=== PATIENT | female | born 1970 | race Caucasian/White ===

== ENCOUNTER 2017-01-14 19:26 | Emergency (ER) | payer BC, OTHER ==
[~2017-01-14] VITALS: Ht 157.5 cm; Wt 117.1 kg
[~2017-01-14 19:26] MED LIST: AMPH30TA2 PO; CHOL100010 PO; DULO-24 PO; LEVO75TA PO; LISI-725 PO; SERT25TA PO
[2017-01-14 19:27] VITALS: TEMP 36.3; Ht 157.5 cm; Wt 117.1 kg
[2017-01-14] MEDS ORDERED: SODIUM CHLORIDE 0.9% 1000ML 1,000 ML IV STA (19:36)
[2017-01-14] MEDS ORDERED: ADENOSINE IV SOLN 3 MG/ML 2 ML VIAL ONE (19:39)
[2017-01-14 20:07] LABS: HEMATOCRIT 37.7 % (37-47); MEAN CELL VOLUME 85.1 fL (80-100); MEAN CORPUSCULAR HEMOGLOBIN 28.9 pg (25-34); MEAN PLATELET VOLUME 12.6 fL (7.4-10.4); PLATELET COUNT 323 K/uL (130-400); RED BLOOD COUNT 4.43 M/uL (4.2-5.4); WHITE BLOOD COUNT 16.83 K/uL (4.8-10.8)
[2017-01-14 20:31] LABS: ALT/SGPT 26 U/L (12-78); AST/SGOT 19 U/L (15-37); BLOOD UREA NITROGEN 12 mg/dl (7-18); BUN/CREATININE RATIO 12.8 (10-20); CALCIUM 8.5 mg/dl (8.5-10.1); CARBON DIOXIDE 24 mmol/L (21-32); CHLORIDE 107 mmol/L (98-107); CREATININE 0.96 mg/dl (0.60-1.20); GLUCOSE 110 mg/dl (70-99); MAGNESIUM 1.9 mg/dl (1.8-2.4); SODIUM 140 mmol/L (136-145)
[2017-01-14 20:36] LABS: ALKALINE PHOSPHATASE 92 U/L (45-117)
[2017-01-14 20:57] LABS: PREG INTERNAL NEGATIVE QC NEG CLEAR BACKGROUND; PREG INTERNAL POSITIVE QC POS CONTROL LINE
[2017-01-14 21:06] LABS: BASO % 0.3 %; BASO ABS # 0.05 K/uL (0-0.2); COMPLETE YES; EOS % 1.5 %; IG% 0.3 %; LYMPH % 39.4 %; LYMPH ABS # 6.63 K/uL (1.2-3.4); MONO % 7.1 %; NEUT % 51.4 %
--- NOTE | 2017-01-14 21:06 | EMERGENCY ROOM VISIT NOTE ---
History Report prepared by Austyn: Roxana Sanon Under the Supervision of: Dr. Chris Hwang D.O. First contact with patient: 19:31 Chief Complaint: TACHYCARDIA Stated Complaint: TACHYCARDIA History of Present Illness The patient is a 46 year old female who presents to the Emergency Room with complaints of constant tachycardia for the past 1.5 hours. She spoke with David Katz PA-C with cardiology. He recommended an extra dose 100mg of Metoprolol. She took this around 181, but her tachycardia has persisted. The patient has had this 3 times in the past. She denies any chest pain. She rates her current discomfort as a 5/10 in severity. The patient states that she feels her pulse pounding in her ears. 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 Her LNMP was 2 weeks ago. 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 A total of 10 systems reviewed and were otherwise negative. Past Medical & Surgical Medical Problems: (1) Hypokalemia (2) Other specified cardiac dysrhythmias (3) Polycystic ovaries Family History FH: heart disease Social History Smoking Status: Never Smoker Smokeless Tobacco Use: No Alcohol Use: none Marital Status: Housing Status: lives with family Occupation Status: employed Current/Historical Medications Scheduled Bupropion (Wellbutrin-Xl), 300 MG PO DAILY Cholecalciferol (Vitamin D), 1,000 UNITS PO DAILY Fluoxetine (Prozac), 10 MG PO DAILY Levothyroxine Sodium (Synthroid), 75 MCG PO DAILY Metoprolol Tartrate (Lopressor), 75 MG PO BID Spironolactone (Aldactone), 1 TAB PO DAILY Allergies Coded Allergies: No Known Allergies (Verified , 07/02/15) Uncoded Allergies: NKA (Allergy, Unknown, 01/08/15) No Known Allergies Physical Exam Vital Signs Date Time Temp Pulse Resp B/P (MAP) Pulse Ox O2 Delivery O2 Flow Rate FiO2 01/14/17 21:19 81 20 127/82 98 Room Air 01/14/17 20:41 77 18 115/76 98 Room Air 01/14/17 19:51 72 18 134/81 98 Room Air 01/14/17 19:47 98 Room Air 01/14/17 19:41 100 01/14/17 19:34 168 01/14/17 19:27 36.3 171 18 113/81 100 Room Air Physical Exam GENERAL: Patient is awake, alert, very anxious appearing. EYES: The conjunctivae are clear. The pupils are round and reactive. EARS, NOSE, MOUTH AND THROAT: The nose is without any evidence of any deformity. Mucous membranes are moist tongue is midline NECK: The neck is nontender and supple. RESPIRATORY: Normal respiratory effort is noted there is no evidence of wheezing rhonchi or rales CARDIOVASCULAR: Tachycardic rate and regular rhythm noted there no murmurs rubs or gallops normal S1 normal S2 GASTROINTESTINAL: The abdomen is soft. Bowel sounds are present in all quadrants. Abdomen is nontender MUSCULOSKELETAL/EXTREMITIES: There is no evidence of gross deformity full range of motion is noted in the hips and shoulders SKIN: There is no obvious evidence of any rash. There are no petechiae, pallor or cyanosis noted. NEUROLOGIC: Patient is awake alert and oriented x3 Medical Decision & Procedures ER Provider Diagnostic Interpretation: A repeat ECG reveals a NSR 87, no ectopy, no ischemia, resolution of previously noted SVT. Laboratory Results 01/14/17 19:40 Red Blood Count 4.43, Mean Corpuscular Volume 85.1, Mean Corpuscular Hemoglobin 28.9, Mean Corpuscular Hemoglobin Concent 34.0, Mean Platelet Volume 12.6, Neutrophils (%) (Auto) 51.4, Lymphocytes (%) (Auto) 39.4, Monocytes (%) (Auto) 7.1, Eosinophils (%) (Auto) 1.5, Basophils (%) (Auto) 0.3, Neutrophils # (Auto) 8.65, Lymphocytes # (Auto) 6.63, Monocytes # (Auto) 1.19, Eosinophils # (Auto) 0.26, Basophils # (Auto) 0.05 01/14/17 19:40 Test 01/14/17 19:40 White Blood Count 16.83 K/uL (4.8-10.8) Red Blood Count 4.43 M/uL (4.2-5.4) Hemoglobin 12.8 g/dL (12.0-16.0) Hematocrit 37.7 % (37-47) Mean Corpuscular Volume 85.1 fL (80-100) Mean Corpuscular Hemoglobin 28.9 pg (25-34) Mean Corpuscular Hemoglobin Concent 34.0 g/dl (32-36) Platelet Count 323 K/uL (130-400) Mean Platelet Volume 12.6 fL (7.4-10.4) Neutrophils (%) (Auto) 51.4 % Lymphocytes (%) (Auto) 39.4 % Monocytes (%) (Auto) 7.1 % Eosinophils (%) (Auto) 1.5 % Basophils (%) (Auto) 0.3 % Neutrophils # (Auto) 8.65 K/uL (1.4-6.5) Lymphocytes # (Auto) 6.63 K/uL (1.2-3.4) Monocytes # (Auto) 1.19 K/uL (0.11-0.59) Eosinophils # (Auto) 0.26 K/uL (0-0.5) Basophils # (Auto) 0.05 K/uL (0-0.2) RDW Standard Deviation 42.0 fL (36.4-46.3) RDW Coefficient of Variation 13.5 % (11.5-14.5) Immature Granulocyte % (Auto) 0.3 % Immature Granulocyte # (Auto) 0.05 K/uL (0.00-0.02) Anion Gap 9.0 mmol/L (3-11) Est Creatinine Clear Calc Drug Dose 88.0 ml/min Estimated GFR () 81.6 Estimated GFR (Non- 70.4 BUN/Creatinine Ratio 12.8 (10-20) Calcium Level 8.5 mg/dl (8.5-10.1) Magnesium Level 1.9 mg/dl (1.8-2.4) Total Bilirubin 0.2 mg/dl (0.2-1) Direct Bilirubin < 0.1 mg/dl (0-0.2) Aspartate Amino Transf (AST/SGOT) 19 U/L (15-37) Alanine Aminotransferase (ALT/SGPT) 26 U/L (12-78) Alkaline Phosphatase 92 U/L (45-117) Troponin I < 0.015 ng/ml (0-0.045) Total Protein 7.5 gm/dl (6.4-8.2) Albumin 3.4 gm/dl (3.4-5.0) Lipase 249 U/L (73-393) Human Chorionic Gonadotropin, Qual NEG (NEG) Laboratory results per my review. Medications Administered Medications (Trade) Dose Ordered Sig/Garcia Route Start Time Stop Time Status Last Admin Dose Admin Sodium Chloride 1,000 ml @ 999 mls/hr Q1H1M STAT IV 01/14/17 19:36 01/14/17 20:36 DC 01/14/17 19:42 999 MLS/HR Adenosine (Adenosine IV) 12 mg STK-MED ONCE .ROUTE 01/14/17 19:39 01/14/17 19:40 DC 01/14/17 19:51 12 MG ECG Indication: tachycardia Rate (beats per minute): 165 Rhythm: SVT Findings: no acute ischemic change, other (No PVCs) ED Course 1930: The patient was evaluated in room A2. A complete history and physical examination were performed. 1935: NSS 1000 ml @ 999 mls/hr IV 1938: Adenosine 12 mg IV 2105: I reassessed the patient at this time. She is feeling better and resting comfortably. I discussed the results and treatment plan with the patient. I answered all pertaining questions that she had. She expressed understanding and verbalized agreement. The patient will be discharged home. Medical Decision Differential diagnosis: Etiologies such as premature contractions, electrolyte abnormality, cardiac dysrhythmia, thyroid dysfunction, pulmonary embolism, infection, gastrointestinal, as well as others were entertained. Medication Reconciliation: I attest that I have personally reviewed the patient' s current medications list. Blood pressure screening: Patient was found to have normal blood pressure on screening and does not require follow-up. The patient is a 46-year-old female who has a history of SVT who presented to the emergency department for an evaluation of palpitations. The patient was in SVT in the emergency department. Multiple attempts at Valsalva maneuver did not resolve the SVT. She was treated with Adenosine in the emergency department. She was treated with IV fluids. On subsequent reevaluation she was feeling much better. I discussed patient's laboratory and radiographic studies with her. 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 She was also encouraged to return to the emergency department immediately if symptoms change worsen or the need arises. Impression Primary Impression: SVT (supraventricular tachycardia) Critical Care I have personally spent greater than 35 minutes of critical care time in the direct management of this patient. This includes bedside care, interpretation of diagnostic studies, and testing, discussion with consultants, patient, and family members, and other required patient management activities. This 35 minutes is in excess of all separately billable procedures. Scribe Attestation The scribe's documentation has been prepared under my direction and personally reviewed by me in its entirety. I confirm that the note above accurately reflects all work, treatment, procedures, and medical decision making performed by me. Departure Information Dispostion Home / Self-Care Referrals Rahul Hernandez M.D. (PCP) Forms HOME CARE DOCUMENTATION FORM, IMPORTANT VISIT INFORMATION, WORK / SCHOOL INSTRUCTIONS Patient Instructions My [facility] Additional Instructions Call your stamping die maker bench in the morning to schedule a follow-up appointment. Rest and avoid any strenuous activity. Return to the emergency department immediately if symptoms change worsen or the need arises.
[2017-01-14] MEDS ORDERED: BUPRTAB51 PO (21:07)
[2017-01-14] MEDS ORDERED: METO-551 PO (21:07)
[2017-01-14] MEDS ORDERED: FLUO10CA48 PO (21:07)
[2017-01-14] MEDS ORDERED: SPIR25TA PO (21:07)
[2017-01-14] MEDS ORDERED: CHOL100010 PO (21:09)
[2017-01-14 21:19] VITALS: BP 127/82; PULSE 81; O2SAT 98
[2017-03-20] MEDS ORDERED: CRDCD/180 PO (14:18)
[2017-07-12] MEDS ORDERED: SPIR50TA2 PO (08:14)
[2017-07-12] MEDS ORDERED: DILT120C68 PO (08:14)
[2017-07-12] MEDS ORDERED: GLC500 PO (08:14)
[2017-07-12] MEDS ORDERED: FLUO20CA35 PO (08:14)
== END 2017-01-14 21:30 | disposition home or self-care (01) ==
LOC: C.EDB 19:27 → C.EDA 21:30
DX: I47.1 Supraventricular tachycardia (principal); E28.2 Polycystic ovarian syndrome

== ENCOUNTER 2017-03-23 11:34 | Day surgery (SDC) | payer BC ==
--- NOTE | 2017-03-20 11:29 | HISTORY & PHYSICAL EXAMINATION ---
DATE OF ADMISSION: 03/23/2017 CHIEF COMPLAINT: Heavy irregular vaginal bleeding and desire for permanent sterilization. HISTORY OF PRESENT ILLNESS: The patient is a 47-year-old 2, para 2. General health is complicated by irregular heartbeat, hypertension and anxiety. She is on metoprolol, Cardizem, Prozac, Wellbutrin and spironolactone. She states she has had heavy bleeding every 2 weeks, lasting for about 7 days, at times heavy with clotting for the past 1 year. She has a ParaGard IUD in place that was inserted into 2011. An ultrasound done on 03/13/2017 revealed fundal fibroid 3.4 x 3.5 x 3.5 cm in diameter and the IUD in good position. The patient also requests permanent sterilization and has been informed of the procedure of tubal ligation including the fact that this procedure is intended to result in permanent and irreversible sterility and that occasionally these procedures will fail and the patient gets despite having had her tubes tied. She has also been informed that there is a possibility that we cannot get the trocar in laparoscopically. The patient presently being scheduled for an outpatient D&C, tubal ligation. PAST MEDICAL HISTORY: She has no known drug allergies. Medical history being treated for anxiety, high blood pressure and irregular heartbeat. She has 2 children in good health. PAST SURGICAL HISTORY: She has had a gallbladder removed. She has had her appendix, has had 2 laparoscopies which showed endometriosis. SOCIAL HISTORY: No smoking. No excessive alcohol intake. Works for [employer]. FAMILY HISTORY: Mom is 83, alive and well. Father in a car accident at age 45. No brothers or sisters. REVIEW OF SYSTEMS: HEAD: No symptoms of frequent or severe headaches. EYES: No symptoms of blurred vision, double vision. EARS: No symptoms of frequent ear infections, difficulty hearing. NOSE: No symptoms of frequent nosebleeds, difficulty breathing through her nose. THROAT: No symptoms of frequent or severe sore throats, difficulty swallowing. RESPIRATORY SYSTEM: No history of asthma, chest pain, shortness of breath. PHYSICAL EXAMINATION: GENERAL: Well-developed, well-nourished 47-year-old white female, alert, oriented x3 and cooperative in no acute distress, appears stated age. EYES: Conjunctivae are pink. Sclerae white. No evidence of jaundice. EARS: Had normal light reflex bilaterally. NOSE: Had normal mucosa. Septum is midline. There were no polyps. THROAT: No erythema or evidence of infection. Teeth are in good state of repair. HEAD: Was normocephalic, normal distribution of hair. NECK: Supple. Trachea midline. Thyroid is not enlarged. There is no adenopathy appreciated. Both carotids are of good intensity. CHEST: Clear to auscultation and percussion. No wheezes, rales or rhonchi appreciated. ABDOMEN: Soft and nontender. Scar right lower quadrant. PELVIC EXAMINATION: Normal appearing cervix, string visible from the cervical os. Uterus was about 9-10 weeks' gestational size, anteverted. There are no adnexal masses appreciated. MUSCULOSKELETAL EXAMINATION: Revealed no calf tenderness. IMPRESSIONS OF THIS CASE: Status post cholecystectomy, status post appendectomy, status post 2 laparoscopies showing endometriosis, also anxiety, high blood pressure, an irregular heartbeat, desire for permanent sterilization, dysfunctional uterine bleeding and uterine fibroids.
[2017-03-20 14:18] VITALS: Ht 157.5 cm; Wt 118.0 kg
[2017-03-20 18:02] LABS: HEMATOCRIT 37.4 % (37-47); MEAN CELL VOLUME 87.4 fL (80-100); MEAN CORPUSCULAR HEMOGLOBIN 28.7 pg (25-34); MEAN CORPUSCULAR HGB CONC 32.9 g/dl (32-36); MEAN PLATELET VOLUME 12.4 fL (7.4-10.4); PLATELET COUNT 313 K/uL (130-400); RED BLOOD COUNT 4.28 M/uL (4.2-5.4); WHITE BLOOD COUNT 12.59 K/uL (4.8-10.8)
[2017-03-20 18:46] LABS: PREG INTERNAL NEGATIVE QC NEG CLEAR BACKGROUND; PREG INTERNAL POSITIVE QC POS CONTROL LINE
[2017-03-20 18:54] LABS: BASO % 0.5 %; BASO ABS # 0.06 K/uL (0-0.2); COMPLETE YES; EOS % 1.1 %; IG% 0.3 %; LYMPH % 40.1 %; LYMPH ABS # 5.05 K/uL (1.2-3.4); MONO % 7.3 %; NEUT % 50.7 %
[~2017-03-23] VITALS: Ht 157.5 cm; Wt 118.0 kg
[~2017-03-23 11:34] MED LIST changes: -AMPH30TA2 PO; +BUPRTAB51 PO; +CRDCD/180 PO; -DULO-24 PO; +FLUO10CA48 PO; +LACTATED RINGER'S 1000ML 1,000 ML IV SCH; -LISI-725 PO; +METO-551 PO; -SERT25TA PO; +SPIR25TA PO
[2017-03-23] MEDS ORDERED: HYDROmorphone INJ 1 MG/ML SYR IV PRN (11:45)
[2017-03-23] MEDS ORDERED: ONDANSETRON INJ 2 MG/ML 2 ML VIAL IV PRN ×2 (11:45→14:30)
[2017-03-23] MEDS ORDERED: ATROPINE SULFATE 0.1 MG/ML 5ML SYR IV PRN (11:45)
[2017-03-23] MEDS ORDERED: FENTANYL CITRATE INJ 50 MCG/1 ML 2 ML VIAL IV PRN (11:45)
[2017-03-23] MEDS ORDERED: ACETAMINOPHEN 1000 MG/100 ML IV IV ONE (11:45)
[2017-03-23] MEDS ORDERED: PROMETHAZINE HCL INJ 12.5 MG in SODIUM CHLORIDE 0.9% 50ML 50 ML IV PRN (11:45)
[2017-03-23] MEDS ORDERED: EpHEDrine SULFATE INJ 50 MG/ML AMP IV PRN (11:45)
[2017-03-23] MEDS ORDERED: MIDAZOLAM HCL 1 MG/ML 2ML VIAL ONE (11:46)
[2017-03-23] MEDS ORDERED: FENTANYL CITRATE INJ 50 MCG/1 ML 2 ML VIAL ONE ×2 (11:47→13:18)
--- NOTE | 2017-03-23 12:03 | History & Physical Bridge Note ---
H&P Re-Evaluation Bridge Note: I have examined the patient, reviewed the History & Physical and in the interval since the performance of the History & Physical I have noted the following changes of clinical significance: No changes noted
[2017-03-23 12:11] VITALS: BP 132/71; PULSE 63; TEMP 37; O2SAT 96
[2017-03-23] MEDS ORDERED: SCOPOLAMINE 1.5 MG TDSY TD ONE (12:43)
[2017-03-23] MEDS ORDERED: LACTATED RINGER'S 1000ML 1,000 ML IV SCH (12:46)
[2017-03-23] MEDS ORDERED: BUPIVACAINE/EPINEPHRINE 0.5% MPF 1:200,000 10 ML VIAL ONE (12:50)
[2017-03-23] MEDS ORDERED: SCOPOLAMINE 1.5 MG TDSY TD SCH (13:00)
[2017-03-23 13:02] LABS: PREG INTERNAL NEGATIVE QC NEG CLEAR BACKGROUND; PREG INTERNAL POSITIVE QC POS CONTROL LINE
[2017-03-23] MEDS ORDERED: ONDANSETRON INJ 2 MG/ML 2 ML VIAL ONE (13:35)
[2017-03-23] MEDS ORDERED: METOCLOPRAMIDE HCL INJ 5 MG/ML 2 ML VIAL ONE (13:35)
[2017-03-23] MEDS ORDERED: LIDOCAINE HCL 2% 2 ML VIAL (20MG/ML) ONE (13:35)
[2017-03-23] MEDS ORDERED: NEOSTIGMINE METHYLSULFATE 5 MG/5 ML SYR ONE (13:35)
[2017-03-23] MEDS ORDERED: GLYCOPYRROLATE INJ 0.2 MG/ML VIAL ONE (13:35)
[2017-03-23] MEDS ORDERED: DEXAMETHASONE SOD INJ 4 MG/ML VIAL ONE (13:35)
[2017-03-23] MEDS ORDERED: ROCURONIUM BROMIDE 10 MG/ML 5 ML VIAL IV ONE (13:35)
[2017-03-23] MEDS ORDERED: PROPOFOL IV EMULSION 10 MG/ML 20 ML VIAL IV ONE (13:35)
[2017-03-23] MEDS ORDERED: LARYING-O-JET KIT (LTA) ONE ×2 (13:51)
[2017-03-23] MEDS ORDERED: KETOROLAC TROMETHAMINE 30 MG/ML VIAL ONE (14:05)
--- NOTE | 2017-03-23 14:20 | [facility] Post Operative Brief Note ---
Immediate Operative Summary Operative Date Mar 23, 2017. Pre-Operative Diagnosis Dysfunctional uterine bleeding; uterine fibroids Post-Operative Diagnosis Same as preop Procedure(s) Performed Dilation and Curettage; Laparoscopic Tubal Ligation, Removal of IUD Surgeon Dr. Guzman [employer] Registrar Surgeon(s) none Estimated Blood Loss 10 cc Findings UTERUS SOUNDED TO 9 CM Specimens A: removed IUD B: uterine curettings Complication(s) None Disposition Recovery Room / PACU
--- NOTE | 2017-03-23 14:23 | Discharge Instructions ---
Discharge Instructions Date of Service Mar 23, 2017. Visit Reason for Visit: Dysfunctional Uterine Bleeding, Desires Sterilizat Discharge Discharge Diagnosis / Problem: IRREGULAR HEAVY VAGINAL BLEEDING DESIRE FOR PERMANENT STERILIZATION Discharge Goals Goal(s): Improve function, Learn about illness Activity Recommendations Activity Limitations: as noted below ACTIVITY RECOMMENDATIONS: * Avoid tampons, douching, hot tubs, pools, and intercourse until bleeding has stopped. * May shower as usual. * No strenuous activity for 24-48 hours. After 24-48 hours, you may do anything you feel like doing (driving and sports are okay). SPECIAL CARE INSTRUCTIONS: Special Diet: * Mild nausea may occur in the immediate post-operative period. * Take clear liquids such as tea, cola or bouillon until all nausea has subsided; you may then resume your normal diet. Special Care: * Light bleeding and vaginal spotting can last from a few days to 3-4 weeks. Call your doctor if bleeding becomes heavier than the heaviest part of your period. * Check your temperature twice a day for one week. If it goes above 100.4 degrees Fahrenheit (38.0 Celsius), notify your doctor. * Call your doctor's office for an appointment for 6 weeks after your surgery. FOLLOW-UP VISIT: Call your doctor's office for an appointment for 6 weeks after your surgery. Anesthesia . Post Anesthesia Instructions: If you have had General Anesthesia or IV Sedation: * Do not drive today. * Resume driving when surgeon permits. * Do not make important decisions or sign legal documents today. * Call surgeon for: 1. Temperature elevations greater than 101 degrees F. 2. Uncontrollable pain. 3. Excessive bleeding. 4. Persistent nausea and vomiting. 5. Medication intolerance (nausea, vomiting or rash). * For nausea and vomiting use only clear liquids such as: tea, soda, bouillon until nausea subsides, then gradually increase diet as tolerated. * If you have any concerns or questions, call your surgeon's office. If physician is unavailable and it is an emergency, call 911 or go to the nearest emergency room. . Instructions / Follow-Up Instructions / Follow-Up SPECIAL CARE INSTRUCTIONS: * Check temperature twice daily for one week. Report any elevation over 100.4 degrees Fahrenheit (38.0 degrees Celsius). * Call office in the next few days for return appointment. * You may experience some vaginal spotting and/or bleeding, this is normal for one or two weeks and should not alarm you. * Post-operative discomfort may consist of a sore throat, a "bloated" feeling and pain in the shoulders. These are normal symptoms which usually only last for two or three days. FOLLOW UP VISIT: Keep any scheduled doctor appointments. Diet Recommendations Recommended Home Diet: resume previous diet Procedures Procedures Performed: Dilation and Curettage; Laparoscopic Tubal Ligation, Removal of IUD Pending Studies Studies pending at discharge: no Medical Emergencies . Who to Call and When: Medical Emergencies: If at any time you feel your situation is an emergency, please call 911 immediately. . Non-Emergent Contact Non-Emergency issues call your: Paragliding Instructor Call Non-Emergent contact if: temperature is above 100.5 . . "Provider Documentation" section prepared by Janes Guzman. .
[2017-03-23] MEDS ORDERED: IBUPROFEN 600 MG TAB PO PRN (14:30)
[2017-03-23] MEDS ORDERED: KETOROLAC TROMETHAMINE 30 MG/ML VIAL IV. PRN (14:30)
[2017-03-23] MEDS ORDERED: OXYCODONE/ACETAMINOPHEN 5-325 TAB PO PRN ×2 (14:30)
[2017-03-23] MEDS ORDERED: HYDROCODONE/ACETAMOPHEN 5/325MG TAB PO PRN ×4 (14:30)
--- NOTE | 2017-03-23 14:32 | OPERATIVE REPORT ---
DATE OF OPERATION: 03/23/2017 INDICATIONS FOR SURGERY: Prolonged irregular bleeding, desire for permanent sterilization. POSTOPERATIVE DIAGNOSIS: Uterine fibroid. PROCEDURE: Removal of IUD, D&C, laparoscopic tubal ligation. SURGEON: Dr. Gumzan. ESTIMATED BLOOD LOSS: 15 mL. ANESTHESIA: General intubational. OPERATIVE FINDINGS AND PROCEDURE: The patient was brought to the OR table, correctly identified by armband and conversation. General anesthesia was administered. Lower abdomen and umbilical area, perineum and vagina were painted with aseptic solution and draped in usual sterile fashion. Catheter was used to empty the bladder. A weighted speculum was placed in the posterior vagina. Anterior lip of the cervix grasped with single tooth tenaculum. Uterus sounded to 9 cm. String from the external cervical os was visualized and by grasping the straining a copper T IUD was removed without difficulty. Then the cervix was dilated with graduated dilators. A small curette was placed in the uterine cavity. All 4 quadrants of the uterus were thoroughly and systematically cureted. This was productive of a moderate amount of normal-appearing tissue. Following this, an acorn cannula was inserted in the cervical canal connected to tenaculum. Attention was now turned to the abdomen. Subumbilical area deep in the umbilicus was infiltrated with local with epinephrine. Stab wound was placed and Veress needle was inserted into the abdominal cavity. Position was checked with normal saline. Then about 4 liters of carbon dioxide gas was passed under low pressure. Incision was then widened laterally and a large cannula and trocar was inserted. Trocar was removed. Laparoscope was inserted. Good visualization of pelvic structures was obtained at this time. A second puncture site was made in the midline 3 fingerbreadths above the pubic symphysis. This area was also infiltrated with local with epinephrine. Stab wound was placed and a 5 mm trocar and sleeve was inserted under direct visualization. I used manipulation with the acorn cannula along with the blunt probe to expose the tubes and ovaries. Exposure was very difficult due to the position of the fibroid and the patient's weight, but we were able to identify the tubes, identified them as separate from the round ligaments on either side, grasped with the bipolar Kleppinger forceps, lift them out of the abdomen towards the anterior abdominal wall and then pressed on the pedal and with bipolar cautery cauterized the tubes in 2 consecutive and adjacent areas, the burn going through the tube and into the mesosalpinx. This was done for the right fallopian tube first and then the same procedure was repeated for the left fallopian tube that was also grasped in 2 adjacent and consecutive areas and cauterized. Following this, some photographs were taken of the burned areas of the tube. Hemostasis was good. The patient tolerated the procedure well. Gas was expressed manually. Instruments were removed. Ports were cleansed with Betadine and sutured with interrupted Vicryl. I attest to the content of the Intraoperative Record and any orders documented therein. Any exception s are noted below.
--- NOTE | 2017-03-23 15:00 | Anesthesiology Progress Note ---
Anesthesia Post Op Note Date & Time Mar 23, 2017 at 14:59 Vital Signs Pain Intensity: 0 Vital Signs Past 12 Hours Date Time Temp Pulse Resp B/P (MAP) Pulse Ox O2 Delivery O2 Flow Rate FiO2 03/23/17 14:56 114/73 03/23/17 14:52 88 17 03/23/17 14:52 89 17 100 03/23/17 14:52 36.3 83 16 114/73 (83) 100 Oxymask 2 Nasal Cannula 03/23/17 14:50 137/68 03/23/17 14:47 86 12 03/23/17 14:47 86 12 96 03/23/17 14:45 141/72 03/23/17 14:42 87 17 03/23/17 14:42 87 17 100 03/23/17 14:40 126/56 03/23/17 14:37 87 16 100 03/23/17 14:37 87 16 03/23/17 14:36 118/43 03/23/17 14:35 80 16 03/23/17 14:35 80 16 100 03/23/17 14:31 142/70 03/23/17 14:30 80 14 03/23/17 14:30 80 14 98 03/23/17 14:25 74 21 03/23/17 14:25 73 21 139/60 97 03/23/17 14:25 36.4 73 16 139/60 99 Oxymask 10 03/23/17 12:11 37 63 18 132/71 (91) 96 Room Air Notes Mental Status: alert / awake / arousable, participated in evaluation Pt Amnestic to Procedure: Yes Nausea / Vomiting: adequately controlled Pain: adequately controlled Airway Patency, RR, SpO2: stable & adequate BP & HR: stable & adequate Hydration State: stable & adequate Anesthetic Complications: no major complications apparent Doing well. No n/v. VSS.
[2017-03-23 15:22] VITALS: BP 115/55; PULSE 80; TEMP 36.7; O2SAT 100
[2017-03-23 15:40] VITALS: BP 115/56; PULSE 71; TEMP 36.5; O2SAT 96
[2017-03-23] MEDS ORDERED: CHECK SCOPOLAMINE PATCH PLACEMENT SCH (16:00)
[2017-03-23 16:10] VITALS: BP 118/59; PULSE 80; O2SAT 94
[2017-03-23] MEDS ORDERED: SODIUM CHLORIDE 0.9% 1000ML 1,000 ML IV SCH (17:00)
== END 2017-03-23 16:35 | disposition home or self-care (01) ==
LOC: C.ACU 11:34
PROVIDERS: ATTEND Obstetrics & Gynecology
DX: Z30.2 Encounter for sterilization (principal); D25.9 Leiomyoma of uterus, unspecified; N93.9 Abnormal uterine and vaginal bleeding, unspecified; N85.8 Other specified noninflammatory disorders of uterus; Z79.899 Other long term (current) drug therapy; Z30.432 Encounter for removal of intrauterine contraceptive device; R03.0 Elevated blood-pressure reading, without diagnosis of hypertension

== ENCOUNTER 2017-07-03 00:23 | Emergency (ER) | payer BC, OTHER ==
[~2017-07-03] VITALS: Ht 157.5 cm; Wt 117.0 kg
[~2017-07-03 00:23] MED LIST changes: -LACTATED RINGER'S 1000ML 1,000 ML IV SCH
[2017-07-03 00:31] VITALS: TEMP 36.3
[2017-07-03 00:39] VITALS: O2SAT 99; Ht 157.5 cm; Wt 117.0 kg
[2017-07-03] MEDS ORDERED: SODIUM CHLORIDE 0.9% 1000ML 1,000 ML IV STA (00:46)
[2017-07-03] MEDS ORDERED: ADENOSINE IV SOLN 3 MG/ML 2 ML VIAL ONE (00:51)
[2017-07-03 01:04] LABS: HEMATOCRIT 42.7 % (37-47); MEAN CORPUSCULAR HEMOGLOBIN 28.7 pg (25-34); MEAN PLATELET VOLUME 12.6 fL (7.4-10.4); PLATELET COUNT 327 K/uL (130-400); RED BLOOD COUNT 4.91 M/uL (4.2-5.4); WHITE BLOOD COUNT 15.52 K/uL (4.8-10.8)
[2017-07-03 01:16] LABS: URINE APPEARANCE CLEAR (CLEAR); URINE BILIRUBIN NEG (NEG); URINE COLOR YELLOW; URINE EPITHELIAL CELL AUTO 20-30 /lpf (0-5); URINE NITRITE NEG (NEG); URINE SPECIFIC GRAVITY 1.009 (1.000-1.030); UROBILINOGEN NEG (NEG)
[2017-07-03 01:18] LABS: PARTIAL THROMBOPLASTIN RATIO 1.1
[2017-07-03 01:23] LABS: ALT/SGPT 33 U/L (12-78); BLOOD UREA NITROGEN 18 mg/dl (7-18); CALCIUM 9.7 mg/dl (8.5-10.1); CARBON DIOXIDE 25 mmol/L (21-32); CHLORIDE 103 mmol/L (98-107); CREATININE 1.26 mg/dl (0.60-1.20); GLUCOSE 120 mg/dl (70-99); MAGNESIUM 1.7 mg/dl (1.8-2.4); POTASSIUM 3.5 mmol/L (3.5-5.1); SODIUM 137 mmol/L (136-145)
[2017-07-03 01:26] LABS: MANUAL MICROSCOPIC REQUIRED? NO; REVIEW REQ? NO
[2017-07-03 01:33] LABS: ALKALINE PHOSPHATASE 90 U/L (45-117); AST/SGOT 18 U/L (15-37); CKMB/CK RATIO 1.1 (0-3.0)
[2017-07-03 01:43] LABS: COMPLETE YES; LYMPH ABS # 4.08 K/uL (1.2-3.4); LYMPHOCYTE % 26.3 %; NEUTROPHILS % 46.5 %; VARIANT LYMPHOCYTE % 19.3 %
[2017-07-03 02:48] VITALS: BP 116/65; PULSE 73; O2SAT 96
--- NOTE | 2017-07-03 02:49 | EMERGENCY ROOM VISIT NOTE ---
History Report prepared by Austyn: Lucinda Dempsey Under the Supervision of: Dr. eTrry Bullard M.D. First contact with patient: 00:46 Chief Complaint: TACHYCARDIA Stated Complaint: SVT History of Present Illness The patient is a 47 year old female who presents to the Emergency Room with complaints of an episode of SVT beginning about 2 hours ago. The patient notes being in SVT about 6 times in the past. The patient follows up with Dr. Boss -Cardiology. She notes that she had an ablation done. The patient took 100 mg of metoprolol this evening. Presently, the patient notes having palpitations, chest pain, and shortness of breath. The patient tried cold compresses, bearing down, and coughing prior to arrival with no relief. Pt denies LOC, headache, fevers, chills, diaphoresis, visual changes, neck pain, nausea, vomiting, abdominal pain, back pain, melena, hematochezia, urinary symptoms, numbness, weakness, lymphadenopathy, rash, or other complaints. Source of History: patient Onset: 2 hours ago Position: other (global) Quality: other (SVT) Timing: other (episode) Associated Symptoms: + chest pain, + SOB Review of Systems See HPI for pertinent positives and negatives. A total of ten systems were reviewed and were otherwise negative. Past Medical & Surgical Medical Problems: (1) Hypokalemia (2) Other specified cardiac dysrhythmias (3) Polycystic ovaries Family History FH: heart disease Social History Smoking Status: Never Smoker Alcohol Use: none Marital Status: Housing Status: lives with family Occupation Status: employed Current/Historical Medications Scheduled Bupropion (Wellbutrin-Xl), 300 MG PO DAILY Cholecalciferol (Vitamin D), 1,000 UNITS PO DAILY Diltiazem Hcl Coated Beads (Cardizem Cd), Unknown Dose PO QAM Fluoxetine (Prozac), 10 MG PO DAILY Levothyroxine Sodium (Synthroid), 75 MCG PO DAILY Metoprolol Tartrate (Lopressor), 75 MG PO BID Spironolactone (Aldactone), 1 TAB PO DAILY Allergies Coded Allergies: No Known Allergies (Verified , 03/23/17) Physical Exam Vital Signs Date Time Temp Pulse Resp B/P (MAP) Pulse Ox O2 Delivery O2 Flow Rate FiO2 07/03/17 02:00 74 16 117/68 96 Room Air 07/03/17 01:02 85 18 104/67 100 Room Air 07/03/17 00:58 99 Room Air 07/03/17 00:46 148 07/03/17 00:39 99 Room Air 07/03/17 00:31 36.3 150 18 101/72 99 Room Air Physical Exam GENERAL: Awake, alert, uncomfortable-appearing, in no distress HENT: Normocephalic, atraumatic. Oropharynx unremarkable. EYES: Normal conjunctiva. Sclera non-icteric. NECK: Supple. No nuchal rigidity. FROM. No JVD. RESPIRATORY: Clear to auscultation. CARDIAC: Tachycardic rate, normal rhythm. Extremities warm and well perfused. Pulses equal. ABDOMEN: Soft, non-distended. No tenderness to palpation. No rebound or guarding. No masses. RECTAL: Deferred. MUSCULOSKELETAL: Chest examination reveals no tenderness. The back is symmetrical on inspection without obvious abnormality. There is no CVA tenderness to palpation. No joint edema. LOWER EXTREMITIES: Calves are equal size bilaterally and non-tender. No edema. No discoloration. NEURO: Normal sensorium. No sensory or motor deficits noted. SKIN: No rash or jaundice noted. Medical Decision & Procedures ER Provider Diagnostic Interpretation: Radiology results as stated below per my review and radiologist interpretation: Chest x-ray. Findings: A chest x-ray was performed and revealed no pneumothorax , effusion, infiltrate, pulmonary edema, free air under the diaphragm, or wide mediastinum. Laboratory Results 07/03/17 00:48 Red Blood Count 4.91, Mean Corpuscular Volume 87.0, Mean Corpuscular Hemoglobin 28.7, Mean Corpuscular Hemoglobin Concent 33.0, Mean Platelet Volume 12.6 07/03/17 00:48 Test 07/03/17 00:48 07/03/17 01:05 White Blood Count 15.52 K/uL (4.8-10.8) Red Blood Count 4.91 M/uL (4.2-5.4) Hemoglobin 14.1 g/dL (12.0-16.0) Hematocrit 42.7 % (37-47) Mean Corpuscular Volume 87.0 fL (80-100) Mean Corpuscular Hemoglobin 28.7 pg (25-34) Mean Corpuscular Hemoglobin Concent 33.0 g/dl (32-36) Platelet Count 327 K/uL (130-400) Mean Platelet Volume 12.6 fL (7.4-10.4) RDW Standard Deviation 43.5 fL (36.4-46.3) RDW Coefficient of Variation 13.8 % (11.5-14.5) Neutrophils % (Manual) 46.5 % Lymphocytes % (Manual) 26.3 % Variant Lymphocytes % (manual) 19.3 % Monocytes % (Manual) 7.9 % Neutrophils # (Manual) 7.22 K/uL (1.4-6.5) Total Absolute Neutrophils 7.22 K/uL (1.4-6.5) Lymphocytes # (Manual) 4.08 K/uL (1.2-3.4) Absolute Variant Lymphocytes 3.00 K/uL Total Absolute Lymphocytes 7.08 K/uL (1.2-3.4) Monocytes # (Manual) 1.23 K/uL (0.11-0.59) Red Blood Cell Morphology Unremarkable Prothrombin Time 11.0 SECONDS (9.0-12.0) Prothromb Time International Ratio 1.0 (0.9-1.1) Activated Partial Thromboplast Time 27.8 SECONDS (21.0-31.0) Partial Thromboplastin Ratio 1.1 Anion Gap 9.0 mmol/L (3-11) Est Creatinine Clear Calc Drug Dose 66.3 ml/min Estimated GFR () 58.3 Estimated GFR (Non- 50.3 BUN/Creatinine Ratio 14.0 (10-20) Calcium Level 9.7 mg/dl (8.5-10.1) Magnesium Level 1.7 mg/dl (1.8-2.4) Total Bilirubin 0.3 mg/dl (0.2-1) Direct Bilirubin < 0.1 mg/dl (0-0.2) Aspartate Amino Transf (AST/SGOT) 18 U/L (15-37) Alanine Aminotransferase (ALT/SGPT) 33 U/L (12-78) Alkaline Phosphatase 90 U/L (45-117) Total Creatine Kinase 104 U/L (26-192) Creatine Kinase MB 1.1 ng/ml (0.5-3.6) Creatine Kinase MB Ratio 1.1 (0-3.0) Troponin I < 0.015 ng/ml (0-0.045) Total Protein 8.0 gm/dl (6.4-8.2) Albumin 3.7 gm/dl (3.4-5.0) Thyroid Stimulating Hormone (TSH) 2.120 uIu/ml (0.300-4.500) Urine Color YELLOW Urine Appearance CLEAR (CLEAR) Urine pH 6.0 (4.5-7.5) Urine Specific [place] 1.009 (1.000-1.030) Urine Protein NEG (NEG) Urine Glucose (UA) NEG (NEG) Urine Ketones NEG (NEG) Urine Occult Blood NEG (NEG) Urine Nitrite NEG (NEG) Urine Bilirubin NEG (NEG) Urine Urobilinogen NEG (NEG) Urine Leukocyte Esterase TRACE (NEG) Urine WBC (Auto) 1-5 /hpf (0-5) Urine RBC (Auto) 0-4 /hpf (0-4) Urine Hyaline Casts (Auto) 0 /lpf (0-5) Urine Epithelial Cells (Auto) 20-30 /lpf (0-5) Urine Bacteria (Auto) NEG (NEG) Laboratory results reviewed by me Medications Administered Medications (Trade) Dose Ordered Sig/Garcia Route Start Time Stop Time Status Last Admin Dose Admin Sodium Chloride 1,000 ml @ 125 mls/hr Q8H STAT IV 07/03/17 00:46 07/03/17 08:45 07/03/17 00:46 125 MLS/HR Adenosine (Adenosine Iv) 6 mg STK-MED ONCE .ROUTE 07/03/17 00:51 07/03/17 00:52 DC 07/03/17 00:51 6 MG ECG Indication: tachycardia Rate (beats per minute): 148 Rhythm: SVT Findings: no acute ischemic change, no ectopy Comparison ECG Date: Repeat EKG: normal sinus 95 bpm ED Course 0046: Ordered Sodium Chloride 1000 ml @ 125 mls/hr IV. 0048: The patient was evaluated in room C7. A complete history and physical exam was performed. 0051: Ordered Adenosine 6 mg IV 0108: The patient states she is feeling better. The patient is still in sinus rhythm. 0240: Patient reevaluated. She is doing well. She has resolution of all symptoms. She desires discharge. Medical Decision Prior records/ancillary studies reviewed. Triage Nursing notes reviewed and agree them. Additional history obtained from the family. The patient's history was concerning for palpitations. Differential diagnosis: Etiologies such as electrolyte abnormality, cardiac dysrhythmia, thyroid dysfunction, pulmonary embolism, infection, gastrointestinal, as well as others were entertained. Physical examination: Consistent with SVT. ER treatment provided: Cardiac monitoring. Vagal maneuvers unsuccessful. Normal saline bolus 6 g of IV adenosine with resolution of SVT On reassessment the patient felt better. Diagnostic interpretation by me: The electrocardiogram was negative for ischemic change. No WPW The labs revealed a slight leukocytosis which is patient states is chronic. Chemistry panel is relatively unremarkable. Imaging studies: Chest x-ray as above. The patient had recurrent SVT that was treated easily with adenosine. She had complete recovery. She will follow-up with her ice scraper's office later today.I gave my usual and customary discussion regarding this issue. By the evaluation outlined above emergent etiologies such as electrolyte abnormality, cardiac dysrhythmia, thyroid dysfunction, pulmonary embolism, infection, as well as others were deemed relatively unlikely. The patient and were informed about the findings as listed above. All questions were answered and they were pleased with the treatment. Return instructions were outlined and the patient was discharged in stable condition. Outpatient prescription management: No change Referral: The patient was referred back to her ice scraper for a recheck of the current condition. Medication Reconcilliation Current Medication List: was personally reviewed by me Blood Pressure Screening Patient's blood pressure: Normal blood pressure Impression Primary Impression: Supraventricular tachycardia, paroxysmal Critical Care I have personally spent greater than 30 minutes of critical care time in the direct management of this patient. This includes bedside care, interpretation of diagnostic studies, and testing, patient, and family members, and other required patient management activities. This 30 minutes is in excess of all separately billable procedures. Scribe Attestation The scribe's documentation has been prepared under my direction and personally reviewed by me in its entirety. I confirm that the note above accurately reflects all work, treatment, procedures, and medical decision making performed by me. Departure Information Dispostion Home / Self-Care Referrals Rahul Hernandez M.D. (PCP) Patient Instructions [facility] Additional Instructions Rest and drink plenty of fluids as tolerated. Continue current medications. Resume normal activities once your symptoms resolve. Eat a heart healthy, low fat, low cholesterol diet. Return to the ER immediately for passing out, chest pain, abdominal pain, vomiting, fevers, difficulty breathing, worsening of your condition, or as needed. Follow up with your ice scraper's office tomorrow for a recheck of your current condition.
--- NOTE | 2017-07-03 07:18 | DIAGNOSTIC IMAGING REPORT ---
SINGLE VIEW CHEST CLINICAL HISTORY: Generalized weakness. FINDINGS: An AP, portable, upright chest radiograph is compared to study dated 07/02/2015 and correlated with chest CT dated 05/20/2007. The examination is degraded by portable technique, large body habitus, and patient rotation. The cardiomediastinal silhouette is unremarkable. There is mild bibasilar atelectasis. The lungs and pleural spaces are otherwise clear. No pneumothorax is seen. The bony thorax is grossly intact. IMPRESSION: No active disease in the chest. Electronically signed by: Jhonny Bowling M.D. 07/03/2017 7:17 AM Dictated Date/Time: 07/03/2017 7:16 AM
== END 2017-07-03 02:50 | disposition home or self-care (01) ==
LOC: C.EDB 00:24 → C.EDC 02:50
DX: I47.1 Supraventricular tachycardia (principal); E28.2 Polycystic ovarian syndrome

== ENCOUNTER 2017-07-12 11:43 | Observation (INO) | payer BC ==
[2017-07-12] VITALS (9 sets, daily range): BP systolic 90–142; BP diastolic 59–74; PULSE 61–86; TEMP 36.5–36.9; O2SAT 95–100; Ht 157.5 cm; Wt 107.6 kg
[~2017-07-12] VITALS: Ht 157.5 cm; Wt 107.6 kg
[~2017-07-12 11:43] MED LIST changes: +DILT120C68 PO; +FLUO20CA35 PO; +GLC500 PO; +SPIR50TA2 PO
[2017-07-12] MEDS ORDERED: MIDAZOLAM HCL 5 MG/ML 1 ML VIAL ONE ×3 (12:55→14:52)
[2017-07-12] MEDS ORDERED: FENTANYL CITRATE INJ 50 MCG/1 ML 2 ML VIAL ONE ×3 (12:55→14:52)
--- NOTE | 2017-07-12 13:08 | Procedure Note ---
Pre-Mod Sedation Assessment General Date of Moderate Sedation: Jul 12, 2017. Vital Signs: Vital Signs Past 12 Hours Date Time Temp Pulse Resp B/P (MAP) Pulse Ox O2 Delivery O2 Flow Rate FiO2 07/12/17 12:20 36.5 78 18 142/74 95 Room Air Review Cardiovascular: regular rate, rhythm Abdomen: normal bowel sounds Airway Class: II Pre-Sedation Airway Assessment Oral Cavity: WNL Short Thick Neck: No Hx of Sleep Apnea: No Smoking Status: Never Smoker Mallampati Classification: Class II ASA Classification: Class II Procedure Planning Contraindications-for Mod Sed: None Yes Notes The planned sedation has been discussed with the patient and consent obtained. I have identified the patient, determined the appropriateness of sedation and have assessed the patient immediately prior to the procedure. All medicine(s) and interventions are by my order.
--- NOTE | 2017-07-12 13:09 | History & Physical Bridge Note ---
H&P Re-Evaluation Bridge Note: I have examined the patient, reviewed the History & Physical and in the interval since the performance of the History & Physical I have noted the following changes of clinical significance: No changes noted. I reviewed the indications, procedure, risks and alternatives with her and she understands and agrees to proceed. Risks of conscious sedation were also reviewed. Her was present during the discussion.
--- NOTE | 2017-07-12 15:23 | Cardiology Procedure Brief Nt ---
Preliminary Cardiology Note Procedure Date Jul 12, 2017. Pre-Procedure Diagnosis SVT Post-Procedure Diagnosis Typical AVNRT Procedure(s) Performed 4 catheter EPS Ablation slow path Jingle Writer Dr. Boss Candy Maker(s) None Estimated Blood Loss 20 cc Preliminary Findings Easily inducible typical AV juan manuel reentry at baseline At the conclusion no sustained SVT could be induced, single atrial echo beats could be consistently induced Recommendations Monitor overnight Resume medications Specimens None Anesthesia local with sedation Complication(s) None Disposition PCU
--- NOTE | 2017-07-12 15:24 | Procedure Note ---
Post-Mod Sedation Assessment General Date of Moderate Sedation Jul 12, 2017. Vital Signs: Vital Signs Past 12 Hours Date Time Temp Pulse Resp B/P (MAP) Pulse Ox O2 Delivery O2 Flow Rate FiO2 07/12/17 15:20 98 16 153/83 (106) 98 Room Air 07/12/17 15:15 98 16 153/83 (106) 98 Room Air 07/12/17 15:10 100 16 112/59 (76) 98 Room Air 07/12/17 12:20 36.5 78 18 142/74 95 Room Air Review - Discharge Criteria Vital Signs Stable: Yes Alert/Oriented/Conversant: Yes Returned to Baseline Mental St: Yes Nausea Absent/Minimal: Yes Pain/Discomfort/Absent/Minimal: Yes Normal/Baseline Respirations: Yes Active Bleeding?: No
[2017-07-12] MEDS ORDERED: METOPROLOL TARTRATE 50 MG TAB PO STA (15:46)
[2017-07-12] MEDS: METFORMIN HCL 500 MG TAB PO SCH (16:47)
[2017-07-12] MEDS: METOPROLOL TARTRATE 50 MG TAB PO SCH (20:28)
[2017-07-12] MEDS ORDERED: IV FLUIDS COMPLETED PRN (20:45)
[2017-07-13 04:37] VITALS: BP 98/54; PULSE 61; TEMP 36.8; O2SAT 97
[2017-07-13] MEDS ORDERED: LEVOTHYROXINE 75 MCG TAB PO SCH (06:00)
[2017-07-13] MEDS: METOPROLOL TARTRATE 50 MG TAB PO SCH (07:27)
[2017-07-13] MEDS: METFORMIN HCL 500 MG TAB PO SCH (07:27)
[2017-07-13 07:32] VITALS: BP 112/74; PULSE 62
[2017-07-13 07:35] VITALS: BP_SYST 110; BP_SYST 85; BP_DIAS 50; BP_DIAS 75; PULSE 59; TEMP 36.7; O2SAT 97
--- NOTE | 2017-07-13 08:24 | Cardiology Follow-Up ---
Subjective Date of Service: Jul 13, 2017. Pt evaluation today including: conversation w/ patient, physical exam, lab review, review of studies, review of inpatient medication list History of Present Illness Doing well this morning, no significant groin discomfort, no chest discomfort. Social History Smoking Status: Never Smoker History of Alcohol Use: No Review of Systems Respiratory: No shortness of breath Cardiac: No chest pain Medications Cardiovascular: Item Value Date Time Diltiazem HCl 120 mg 07/13/17 0900 (TIAzac CAP) DAILY/PO 07/13/17 0727 Metoprolol 50 mg 07/12/17 2100 Tartrate BID/PO 07/13/17 0727 (Lopressor Tab) Objective Vital Signs Past 12 Hours Date Time Temp Pulse Resp B/P (MAP) Pulse Ox O2 Delivery O2 Flow Rate FiO2 07/13/17 07:35 36.7 59 18 85/50 (62) 97 Room Air 110/75 (87) 07/13/17 07:32 62 112/74 (87) 07/13/17 04:37 36.8 61 15 98/54 (69) 97 Room Air 07/13/17 04:00 Room Air 07/13/17 00:00 Room Air 07/12/17 23:51 36.6 63 18 110/73 (85) 96 Room Air Last Recorded Weight-Kilograms: 107.600 Physical Exam Constitutional: Level of Distress: NAD Lungs: Auscultation: breath sounds normal Cardiovascular: Heart Auscultation: RRR, no rubs Extremities: no edema Right and left groin sites looked good without bleeding or hematoma Data EKG: Post procedure yesterday sinus rhythm, normal [place] Telemetry reviewed: Sinus rhythm, no AV block or SVT Assessment and Plan #1. Postop day #1 following slow pathway ablation: She is doing well today, she has had no recurrent SVT (although it is infrequent) and she has no complaints. Her electrocardiogram is unchanged. Stable for discharge today.
--- NOTE | 2017-07-13 08:31 | Discharge Instructions ---
Discharge Instructions Date of Service Jul 13, 2017. Admission Paroxysmal Supraventricular Tachycardia Discharge Discharge Diagnosis / Problem: Ablation Typical AVNRT Discharge Goals Goal(s): Improve disease control Activity Recommendations Activity Limitations: as noted below . Instructions / Follow-Up Instructions / Follow-Up ACTIVITY RECOMMENDATIONS: * You may shower/bathe in 1 day. MEDICATIONS: * Tylenol, as directed, for discomfort. SPECIAL CARE INSTRUCTIONS: * If bleeding occurs, apply direct pressure to area for 5 minutes. * Call your doctor if you have severe pain, fever, drainage or bleeding at site. * Keep any scheduled doctor's appointment. SKIN IRRITATION: * You may experience some redness and/or swelling in the area where radiation was administered. If any skin irritation occurs, please contact your family physician. FOLLOW UP VISIT: 08/14/2016 @ 10:30 am Current Hospital Diet Patient's current hospital diet: AHA Diet (Heart Healthy) Discharge Diet Recommended Diet: AHA Diet (Heart Healthy) Pending Studies Studies pending at discharge: no Medical Emergencies . Who to Call and When: Medical Emergencies: If at any time you feel your situation is an emergency, please call 911 immediately. . Non-Emergent Contact Non-Emergency issues call your: District Superintendent . . "Provider Documentation" section prepared by Aruna Esparza. . VTE Core Measure Inpt VTE Proph given/why not?: Treatment not indicated
[2017-07-13] MEDS ORDERED: DILTIAZEM HCL 120 MG EXT REL CAP PO SCH (09:00)
[2017-07-13] MEDS ORDERED: FLUOXETINE HCL 20 MG CAP PO SCH (09:00)
[2017-07-13] MEDS ORDERED: BuPROPion XL 300 MG TABCR PO SCH (09:00)
[2017-07-13 09:08] VITALS: BP 110/75; PULSE 59; TEMP 36.7; O2SAT 97
--- NOTE | 2017-07-13 09:20 | Discharge Summary ---
Discharge Summary Admission Date: Jul 12, 2017 at 15:27 Discharge Date: Jul 13, 2017 Discharge Disposition: Home Primary Diagnosis: Paroxysmal Supraventricular Tachycardia Secondary Diagnoses/Problems: Medical Problems: (1) SVT (supraventricular tachycardia) Status: Acute Procedures: Ablation Typical AVNRT Discharge Instructions Last Recorded Wt (Kilograms): 107.600 Activity Recommendations: limitations as noted below Diet At Discharge: resume previous diet Allergies: Coded Allergies: Citalopram (Unverified Allergy, Mild, unknown, 07/12/17) unknown Paroxetine (Unverified Allergy, Unknown, unknown, 07/12/17) unknown Additional Instructions: ACTIVITY RECOMMENDATIONS: * You may shower/bathe in 1 day. MEDICATIONS: * Tylenol, as directed, for discomfort. SPECIAL CARE INSTRUCTIONS: * If bleeding occurs, apply direct pressure to area for 5 minutes. * Call your doctor if you have severe pain, fever, drainage or bleeding at site. * Keep any scheduled doctor's appointment. SKIN IRRITATION: * You may experience some redness and/or swelling in the area where radiation was administered. If any skin irritation occurs, please contact your family physician. FOLLOW UP VISIT: Keep any scheduled doctor appointments. Special Care: Call your doctor if: * Temperature above 101 degrees * Pain not relieved by pain medicine ordered * There is increased drainage or redness from any incision * You have any unanswered questions or concerns. Avoid all tobacco products. If you need help to stop smoking, call [place]'s FREE QUITLINE at . This is a free call. 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 Patient was seen acutely at [facility] ER early this morning shortly after midnight complaining of Recurrent PSVT, Tachypalpitations, Mild Chest Discomfort, and Dyspnea which began about 2 hours before presentation. She was noted to be Hypomagnesemic (Mg 1.7 mg/dL) and her serum K+ level was 3.5 mmol/L (lower end of normal range). Patient was given IV Adenosine 6 mg which broke her AVNRT. Her cardiac enzymes were negative, and her EKG showed no evidence of injury. This is her fourth episode of PSVT requiring a trip to the ER since January 2017. At the present time, patient offers no complaints. She is very concerned about having recurrent SVT -- and she has been doing less and less socially for fear that she will have another episode. She does complain of some fatigue related to escalating doses of her beta-mona. She has not had any recurrent tachycardia thus far today -- but she has been experiencing frequent PVCs today which are without associated symptoms. She further denies any exertional chest pain, heaviness, tightness, pressure, or discomfort. She denies any exertional neck, jaw, back, or arm pain. She denies any shortness of breath, unusual dyspnea on exertion, or any recent changes in her exertional tolerance. She denies any orthopnea, PND, syncope, or near syncope. She remains compliant with her medications and has not had any adverse side effects. Admission Physical Exam Additional Comments: General: Patient is in no acute distress. HEENT: Head is atraumatic, normocephalic. Facies are symmetric. EOMs intact. Sclerae anicteric. No perioral cyanosis. Neck: No thyromegaly, adenopathy, or JVD. Carotid upstrokes are +2 bilaterally without bruits. Chest and Lungs: Clear to auscultation throughout all lung gonzales, no wheezes or rales. CVS: S1 and S2 are regular with occasional ectopy. No murmurs, gallops, or rubs. PMI is nonpalpable. No lifts, heaves, or thrills. No abdominal aortic or renal bruits. Abdominal Exam: Bowel sounds are present. No masses, organomegaly, or tenderness. Extremities: No edema. Neurologic Exam: Patient is awake, alert, and oriented. Pleasant and cooperative. Answers questions appropriately. Speech is clear. Gait pattern is normal. Hospital Course Patient is a 47-year-old female with paroxysmal supraventricular tachycardia who underwent ablation of typical AVNRT yesterday with Dr. Boss. She tolerated the procedure well. She was hypotensive throughout her hospital stay, therefore, her Diltiazem was discontinued upon discharge. Her other medications remained unchanged. She was deemed stable for discharge on 04/23/17. She will have a follow-up appointment as an outpatient in 1 month. Total time spent on discharge = This includes examination of the patient, discharge planning, medication reconciliation, and communication with other providers.
== END 2017-07-13 09:59 | disposition home or self-care (01) ==
LOC: C.EP 11:43 → ENRESERV 15:19 → C.2T 15:27
PROVIDERS: ADMIT Internal Medicine Cardiovascular Disease; ATTEND Internal Medicine Cardiovascular Disease
DX: I47.1 Supraventricular tachycardia (principal); I49.3 Ventricular premature depolarization; G47.33 Obstructive sleep apnea (adult) (pediatric); I10 Essential (primary) hypertension; E78.5 Hyperlipidemia, unspecified; E03.9 Hypothyroidism, unspecified; R73.01 Impaired fasting glucose

== ENCOUNTER 2017-08-05 02:10 | Emergency (ER) | payer BC ==
[~2017-08-05] VITALS: Ht 157.5 cm; Wt 99.8 kg
[~2017-08-05 02:10] MED LIST changes: -CHOL100010 PO; -CRDCD/180 PO; -DILT120C68 PO; -FLUO10CA48 PO; -SPIR25TA PO
[2017-08-05 02:13] VITALS: TEMP 36.7; Ht 157.5 cm; Wt 99.8 kg
[2017-08-05] MEDS ORDERED: ADENOSINE IV SOLN 3 MG/ML 2 ML VIAL ONE ×2 (02:20→02:29)
[2017-08-05] MEDS ORDERED: ADENOSINE IV SOLN 3 MG/ML 2 ML VIAL IV STA (02:27)
[2017-08-05] MEDS ORDERED: SODIUM CHLORIDE 0.9% 1000ML 1,000 ML IV STA (02:27)
[2017-08-05] MEDS ORDERED: LORAZEPAM 2 MG/ML 1 ML VIAL IV STA (03:16)
[2017-08-05 03:39] LABS: HEMATOCRIT 45.4 % (37-47); HEMOGLOBIN 15.2 g/dL (12.0-16.0); MEAN CELL VOLUME 86.1 fL (80-100); MEAN CORPUSCULAR HEMOGLOBIN 28.8 pg (25-34); MEAN CORPUSCULAR HGB CONC 33.5 g/dl (32-36); MEAN PLATELET VOLUME 13.5 fL (7.4-10.4); PLATELET COUNT 392 K/uL (130-400); RED CELL DISTRIBUTION WIDTH CV 13.4 % (11.5-14.5); RED CELL DISTRIBUTION WIDTH SD 41.8 fL (36.4-46.3); WHITE BLOOD COUNT 16.06 K/uL (4.8-10.8)
[2017-08-05 03:50] LABS: ALBUMIN 3.9 gm/dl (3.4-5.0); ALT/SGPT 39 U/L (12-78); AST/SGOT 22 U/L (15-37); BLOOD UREA NITROGEN 9 mg/dl (7-18); CALCIUM 9.4 mg/dl (8.5-10.1); CARBON DIOXIDE 25 mmol/L (21-32); CREATININE 1.12 mg/dl (0.60-1.20); GLUCOSE 117 mg/dl (70-99); POTASSIUM 3.8 mmol/L (3.5-5.1); SODIUM 135 mmol/L (136-145)
[2017-08-05 04:02] LABS: ALKALINE PHOSPHATASE 99 U/L (45-117); TOTAL PROTEIN 8.6 gm/dl (6.4-8.2)
--- NOTE | 2017-08-05 04:54 | EMERGENCY ROOM VISIT NOTE ---
History Report prepared by Austyn: Mike Escobar Under the Supervision of: Dr. Giovana Miner D.O. First contact with patient: 02:16 Chief Complaint: TACHYCARDIA Stated Complaint: SVT History of Present Illness The patient is a 47 year old female who presents to the Emergency Room with complaints of persistent heart palpitations beginning two hours ago. She had a cardiac ablation earlier this month for SVT. Her current symptoms feel the same as her previous episodes of SVT. The patient has had problems with SVT for several years, and had has had two total ablations. She has attempted vagal maneuvers at home, but nothing has improved her symptoms. She also complains of lightheadedness, and nausea. The patient denies any shortness of breath. She denies chance of . Source of History: patient Onset: Two hours ago Quality: other (palpitations) Timing: other (persistent) Modifying Factors (Relieving): other (none) Associated Symptoms: + nausea, No SOB Note: Additional symptoms: lightheadedness. Review of Systems See HPI for pertinent positives & negatives. A total of 10 systems reviewed and were otherwise negative. Past Medical & Surgical Medical Problems: (1) Hypokalemia (2) Other specified cardiac dysrhythmias (3) Polycystic ovaries Family History FH: heart disease Social History Smoking Status: Never Smoker Alcohol Use: none Marital Status: Housing Status: lives with family Occupation Status: employed Current/Historical Medications Scheduled Bupropion (Wellbutrin-Xl), 300 MG PO DAILY Fluoxetine (Prozac), 20 MG PO DAILY Levothyroxine Sodium (Synthroid), 75 MCG PO DAILY Metformin HCl (Metformin HCl), 1 TAB PO BID Metoprolol Tartrate (Lopressor), 50 MG PO BID Spironolactone (Aldactone), 1 TAB PO DAILY Allergies Coded Allergies: Citalopram (Unverified Allergy, Mild, unknown, 08/05/17) unknown Paroxetine (Unverified Allergy, Unknown, unknown, 08/05/17) unknown Physical Exam Vital Signs Date Time Temp Pulse Resp B/P (MAP) Pulse Ox O2 Delivery O2 Flow Rate FiO2 08/05/17 05:06 75 16 123/76 98 08/05/17 03:23 123/69 98 Room Air 08/05/17 02:40 75 17 08/05/17 02:36 97 08/05/17 02:33 134/89 08/05/17 02:31 127 08/05/17 02:21 142 08/05/17 02:17 125/93 08/05/17 02:13 36.7 146 18 99 Room Air Physical Exam GENERAL: alert, uncomfortable appearing, well nourished, no distress, non-toxic EYE EXAM: normal conjunctiva, PERRL and EOM's grossly intact OROPHARYNX: no exudate, no erythema, lips, buccal mucosa, and tongue normal and mucous membranes are moist NECK: supple, no nuchal rigidity, no adenopathy, non-tender LUNGS: Clear to auscultation. Normal chest wall mechanics HEART: Tachycardic rate. ABDOMEN: abdomen soft, non-tender, normo-active bowel sounds, no masses, no rebound or guarding. BACK: Back is symmetrical on inspection and there is no deformity, no midline tenderness, no CVA tenderness. SKIN: no rashes and no bruising UPPER EXTREMITIES: upper extremities are grossly normal. LOWER EXTREMITIES: No pitting edema. NEURO EXAM: Normal sensorium, cranial nerves II-XII grossly intact, normal speech, no gross weakness of arms, no gross weakness of legs. Medical Decision & Procedures Laboratory Results 08/05/17 02:23 Red Blood Count 5.27, Mean Corpuscular Volume 86.1, Mean Corpuscular Hemoglobin 28.8, Mean Corpuscular Hemoglobin Concent 33.5, Mean Platelet Volume 13.5 08/05/17 02:23 Test 08/05/17 02:23 White Blood Count 16.06 K/uL (4.8-10.8) Red Blood Count 5.27 M/uL (4.2-5.4) Hemoglobin 15.2 g/dL (12.0-16.0) Hematocrit 45.4 % (37-47) Mean Corpuscular Volume 86.1 fL (80-100) Mean Corpuscular Hemoglobin 28.8 pg (25-34) Mean Corpuscular Hemoglobin Concent 33.5 g/dl (32-36) Platelet Count 392 K/uL (130-400) Mean Platelet Volume 13.5 fL (7.4-10.4) RDW Standard Deviation 41.8 fL (36.4-46.3) RDW Coefficient of Variation 13.4 % (11.5-14.5) Neutrophils % (Manual) 41.2 % Lymphocytes % (Manual) 29.8 % Monocytes % (Manual) 8.8 % Basophils % (Manual) 0.9 % Neutrophils # (Manual) 6.62 K/uL (1.4-6.5) Total Absolute Neutrophils 6.62 K/uL (1.4-6.5) Lymphocytes # (Manual) 4.79 K/uL (1.2-3.4) Total Absolute Lymphocytes 7.89 K/uL (1.2-3.4) Monocytes # (Manual) 1.41 K/uL (0.11-0.59) Basophils # (Manual) 0.14 K/uL (0-0.2) Percent Large Granular Lymphocytes 19.3 % Absolute Large Granular Lymphocytes 3.10 K/uL Toxic Vacuolation 1+ Anion Gap 7.0 mmol/L (3-11) Est Creatinine Clear Calc Drug Dose 67.9 ml/min Estimated GFR () 67.3 Estimated GFR (Non- 58.0 BUN/Creatinine Ratio 8.3 (10-20) Calcium Level 9.4 mg/dl (8.5-10.1) Magnesium Level 1.8 mg/dl (1.8-2.4) Total Bilirubin 0.3 mg/dl (0.2-1) Aspartate Amino Transf (AST/SGOT) 22 U/L (15-37) Alanine Aminotransferase (ALT/SGPT) 39 U/L (12-78) Alkaline Phosphatase 99 U/L (45-117) Troponin I < 0.015 ng/ml (0-0.045) Total Protein 8.6 gm/dl (6.4-8.2) Albumin 3.9 gm/dl (3.4-5.0) Globulin 4.7 gm/dl (2.5-4.0) Albumin/Globulin Ratio 0.8 (0.9-2) Thyroid Stimulating Hormone (TSH) 5.950 uIu/ml (0.300-4.500) Human Chorionic Gonadotropin, Qual NEG (NEG) Chemistry Specimen Hemolysis Laboratory results per my review. Medications Administered Medications (Trade) Dose Ordered Sig/Garcia Route Start Time Stop Time Status Last Admin Dose Admin Adenosine (Adenosine Iv) 6 mg STK-MED ONCE .ROUTE 08/05/17 02:20 12/31/17 02:21 DC 08/05/17 02:38 6 MG Sodium Chloride 1,000 ml @ 999 mls/hr Q1H1M STAT IV 08/05/17 02:27 08/05/17 03:27 DC 08/05/17 02:27 999 MLS/HR Adenosine (Adenosine Iv) 12 mg NOW STAT IV 08/05/17 02:27 08/05/17 02:30 DC 08/05/17 02:39 12 MG Lorazepam (Ativan Inj) 0.5 mg NOW STAT IV 08/05/17 03:16 08/05/17 03:17 DC 08/05/17 03:22 0.5 MG ECG Indication: palpitations Rate (beats per minute): 143 Rhythm: SVT Findings: no acute ischemic change, other (Normal axis. Normal QRS and QTC. ) ED Course 0217: The patient was evaluated in room A10. A complete history and physical exam was performed. 0220: Ordered Adenosine 6 mg IV. 0228: I administered the Adenosine. Patient tolerated the procedure without difficulty, but her heart rhythm did not convert. 0229: Ordered Adenosine 12 mg IV. 0230: I administered the second dose of Adenosine. Patient tolerated the procedure without complication. Her heart rate lowered to the 90's and appeared to be a normal sinus rhythm on the monitor. 0451: Pt re-examined, updated on all results. No recurrence of SVT. I discussed the findings and the treatment plan with the patient. She verbalizes agreement and understanding. The patient was discharged home. Medical Decision Differential diagnosis: Etiologies such as premature contractions, electrolyte abnormality, cardiac dysrhythmia, thyroid dysfunction, pulmonary embolism, infection, gastrointestinal, as well as others were entertained. Patient monitored for several hours here and had no recurrence of SVT. Patient made aware of all results. Discussed close follow-up with her research engineer, symptoms watch return for, hydration, use or her routine medications. Other vital signs stable, doubt occult infectious etiology, PE. Episodes consistent with prior episodes of SVT also. Discussed with patient symptoms to watch and return for, she verbalized understanding was agreeable with plan. Medication Reconcilliation Current Medication List: was personally reviewed by me Blood Pressure Screening Patient's blood pressure: Normal blood pressure Blood pressure disposition: Did not require urgent referral Impression Primary Impression: Supraventricular tachycardia, paroxysmal Critical Care I have personally spent greater than 35 minutes of critical care time in the direct management of this patient. This includes bedside care, interpretation of diagnostic studies, and testing, discussion with consultants, patient, and family members, and other required patient management activities. This 35 minutes is in excess of all separately billable procedures. Scribe Attestation The scribe's documentation has been prepared under my direction and personally reviewed by me in its entirety. I confirm that the note above accurately reflects all work, treatment, procedures, and medical decision making performed by me. Departure Information Dispostion Home / Self-Care Referrals Rahul Hernandez M.D. (PCP) Patient Instructions My [facility] Additional Instructions Please call your research engineer on Sunday to discuss your event tonight. Please continue your regular medication as prescribed including your supplementation. Please stay well hydrated. If you have any recurrent symptoms or new concerns including fast heart rate, chest pain, trouble breathing, fevers, vomiting, dizziness, or you have any other concerns, please return to the emergency room.
[2017-08-05 05:06] VITALS: BP 123/76; PULSE 75; O2SAT 98
== END 2017-08-05 05:07 | disposition home or self-care (01) ==
LOC: C.EDB 02:12 → C.EDA 05:07
DX: I47.1 Supraventricular tachycardia (principal); Z82.49 Family history of ischemic heart disease and other diseases of the circulatory system

== ENCOUNTER 2018-03-11 10:17 | Emergency (ER) | payer OTHER ==
[~2018-03-11] VITALS: Ht 157.5 cm; Wt 113.0 kg
[2018-03-11 10:19] VITALS: TEMP 36.3; Ht 157.5 cm; Wt 113.0 kg
[2018-03-11] MEDS ORDERED: ADENOSINE IV SOLN 3 MG/ML 2 ML VIAL ONE ×3 (10:32→10:57)
[2018-03-11 10:50] VITALS: O2SAT 100
[2018-03-11] MEDS ORDERED: FLUO10CA48 PO (11:26)
[2018-03-11] MEDS ORDERED: LIRA18IN SQ (11:26)
[2018-03-11] MEDS ORDERED: SODIUM CHLORIDE 0.9% 1000ML 1,000 ML IV STA (11:34)
[2018-03-11 11:41] LABS: HEMATOCRIT 42.8 % (37-47); HEMOGLOBIN 14.5 g/dL (12.0-16.0); MEAN CELL VOLUME 87.7 fL (80-100); MEAN CORPUSCULAR HEMOGLOBIN 29.7 pg (25-34); MEAN CORPUSCULAR HGB CONC 33.9 g/dl (32-36); MEAN PLATELET VOLUME 13.7 fL (7.4-10.4); PLATELET COUNT 381 K/uL (130-400); RED CELL DISTRIBUTION WIDTH CV 13.4 % (11.5-14.5); RED CELL DISTRIBUTION WIDTH SD 43.1 fL (36.4-46.3)
[2018-03-11 11:59] LABS: ALBUMIN 3.3 gm/dl (3.4-5.0); ALKALINE PHOSPHATASE 106 U/L (45-117); ALT/SGPT 42 U/L (12-78); AST/SGOT 30 U/L (15-37); BLOOD UREA NITROGEN 26 mg/dl (7-18); CALCIUM 9.2 mg/dl (8.5-10.1); CARBON DIOXIDE 28 mmol/L (21-32); CREATININE 1.37 mg/dl (0.60-1.20); GLUCOSE 215 mg/dl (70-99); POTASSIUM 3.8 mmol/L (3.5-5.1); SODIUM 135 mmol/L (136-145); TOTAL PROTEIN 7.3 gm/dl (6.4-8.2)
--- NOTE | 2018-03-11 11:59 | DIAGNOSTIC IMAGING REPORT ---
CHEST ONE VIEW PORTABLE CLINICAL HISTORY: Chest pain. Supraventricular tachycardia. COMPARISON STUDY: Chest radiograph July 03, 2017. FINDINGS: Lung volumes are normal. No pneumothorax or pleural effusion is present. There is no consolidation or evidence for pulmonary edema. Cardiomediastinal silhouette is stable. IMPRESSION: No acute cardiopulmonary findings. Electronically signed by: Rhett Jordan M.D. 03/11/2018 11:58 AM Dictated Date/Time: 03/11/2018 11:57 AM
--- NOTE | 2018-03-11 13:18 | EMERGENCY ROOM VISIT NOTE ---
History Report prepared by Austyn: Angella Solo Under the Supervision of: Dr. Giovana Miner D.O. First contact with patient: 10:30 Chief Complaint: IRREGULAR HEARTBEAT Stated Complaint: SVT History of Present Illness The patient is a 48 year old female who presents to the Emergency Room with complaints of a sudden irregular heartbeat starting an hour ago. The patient states that she has a history of SVT. She notes that she is on a medication to help prevent these episodes. She states that she took her normal regular dose this morning and then an extra when she felt it come on. She states that she feels a pressure in her chest and like she has been running for some time. She reports that this is not as bad as it has been in the past. She notes that her last episode was August [id number]. The patient states that she usually converts after one dose of Adenosine, but last time it took 2. The patient complains of dizziness, nausea, and shortness of breath. She notes that she has been cardioverted once and has had 2 ablations in the past. Source of History: patient Onset: an hour ago Position: chest Quality: pressure, other (irregular heartbeat, like she has been running) Timing: other (sudden) Associated Symptoms: + SOB, + nausea Note: The patient complains of dizziness. Review of Systems See HPI for pertinent positives & negatives. A total of 10 systems reviewed and were otherwise negative. Past Medical & Surgical Medical Problems: (1) Diabetes (2) HTN (hypertension) (3) Hyperthyroidism (4) Hypokalemia (5) Other specified cardiac dysrhythmias (6) Polycystic ovaries Family History FH: heart disease Social History Smoking Status: Never Smoker Alcohol Use: none Marital Status: Housing Status: lives with family Occupation Status: employed Current/Historical Medications Scheduled Bupropion (Wellbutrin-Xl), 300 MG PO QAM Fluoxetine (Prozac), 10 MG PO QAM Levothyroxine Sodium (Synthroid), 75 MCG PO QAM Liraglutide (Victoza), 0 SQ QAM Metoprolol Tartrate (Lopressor), 50 MG PO BID Spironolactone (Aldactone), 1 TAB PO QAM Allergies Coded Allergies: Citalopram (Unverified Allergy, Mild, unknown, 03/11/18) unknown Paroxetine (Unverified Allergy, Unknown, unknown, 03/11/18) unknown Physical Exam Vital Signs Date Time Temp Pulse Resp B/P (MAP) Pulse Ox O2 Delivery O2 Flow Rate FiO2 03/11/18 13:41 83 116/72 99 03/11/18 13:35 82 18 98 03/11/18 13:31 116/72 03/11/18 13:30 84 19 98 03/11/18 13:25 86 18 96 03/11/18 13:21 117/72 03/11/18 13:20 84 17 98 03/11/18 13:16 117/72 03/11/18 13:15 89 18 97 03/11/18 13:10 88 20 97 03/11/18 13:05 86 18 94 03/11/18 13:01 120/75 03/11/18 13:00 86 16 93 03/11/18 12:55 87 16 94 03/11/18 12:50 90 18 97 03/11/18 12:46 107/82 03/11/18 12:45 87 17 100 03/11/18 12:40 88 21 97 03/11/18 12:35 86 15 99 03/11/18 12:32 120/77 03/11/18 12:30 85 120/77 99 Room Air 03/11/18 12:30 86 14 97 03/11/18 12:00 88 14 103/63 96 Room Air 03/11/18 11:48 87 101/57 97 Room Air 03/11/18 11:15 81 19 95/50 100 Room Air 03/11/18 11:09 87 03/11/18 11:05 90 18 94/57 100 Nasal Cannula 2.0 03/11/18 11:00 72/45 03/11/18 10:53 171 20 92/53 99 Nasal Cannula 03/11/18 10:50 100 Nasal Cannula 2.0 03/11/18 10:44 100 03/11/18 10:35 175 20 103/86 100 Room Air 03/11/18 10:32 173 03/11/18 10:26 100 Room Air 03/11/18 10:19 36.3 171 20 100 Room Air Physical Exam GENERAL: alert, uncomfortable appearing, well nourished, no distress, non-toxic EYE EXAM: normal conjunctiva, PERRL and EOM's grossly intact OROPHARYNX: no exudate, no erythema, lips, buccal mucosa, and tongue normal and mucous membranes are moist NECK: supple, no nuchal rigidity, no adenopathy, non-tender LUNGS: Clear to auscultation. Normal chest wall mechanics HEART: Fast rate and regular rhythm, no murmurs, S1 normal and S2 normal ABDOMEN: abdomen is obese and soft, non-tender, normo-active bowel sounds, no masses, no rebound or guarding. BACK: Back is symmetrical on inspection and there is no deformity, no midline tenderness, no CVA tenderness. SKIN: no rashes and no bruising UPPER EXTREMITIES: upper extremities are grossly normal. LOWER EXTREMITIES: No pitting edema. NEURO EXAM: Normal sensorium, cranial nerves II-XII grossly intact, normal speech, no gross weakness of arms, no gross weakness of legs. Medical Decision & Procedures ER Provider Diagnostic Interpretation: Radiology results have been interpreted by the radiologist and reviewed by me. CHEST ONE VIEW PORTABLE CLINICAL HISTORY: Chest pain. Supraventricular tachycardia. COMPARISON STUDY: Chest radiograph July 03, 2017. FINDINGS: Lung volumes are normal. No pneumothorax or pleural effusion is present. There is no consolidation or evidence for pulmonary edema. Cardiomediastinal silhouette is stable. IMPRESSION: No acute cardiopulmonary findings. Electronically signed by: Rhett Jordan M.D. 03/11/2018 11:58 AM Dictated Date/Time: 03/11/2018 11:57 AM Laboratory Results 03/11/18 10:20 Red Blood Count 4.88, Mean Corpuscular Volume 87.7, Mean Corpuscular Hemoglobin 29.7, Mean Corpuscular Hemoglobin Concent 33.9, Mean Platelet Volume 13.7 03/11/18 10:20 Test 03/11/18 10:20 White Blood Count 14.80 K/uL (4.8-10.8) Red Blood Count 4.88 M/uL (4.2-5.4) Hemoglobin 14.5 g/dL (12.0-16.0) Hematocrit 42.8 % (37-47) Mean Corpuscular Volume 87.7 fL (80-100) Mean Corpuscular Hemoglobin 29.7 pg (25-34) Mean Corpuscular Hemoglobin Concent 33.9 g/dl (32-36) Platelet Count 381 K/uL (130-400) Mean Platelet Volume 13.7 fL (7.4-10.4) RDW Standard Deviation 43.1 fL (36.4-46.3) RDW Coefficient of Variation 13.4 % (11.5-14.5) Neutrophils % (Manual) 39.4 % Lymphocytes % (Manual) 27.2 % Variant Lymphocytes % (manual) 26.3 % Monocytes % (Manual) 4.4 % Eosinophils % (Manual) 1.8 % Basophils % (Manual) 0.9 % Neutrophils # (Manual) 5.83 K/uL (1.4-6.5) Total Absolute Neutrophils 5.83 K/uL (1.4-6.5) Lymphocytes # (Manual) 4.03 K/uL (1.2-3.4) Absolute Variant Lymphocytes 3.89 K/uL Total Absolute Lymphocytes 7.92 K/uL (1.2-3.4) Monocytes # (Manual) 0.65 K/uL (0.11-0.59) Eosinophils # (Manual) 0.27 K/uL (0-0.5) Basophils # (Manual) 0.13 K/uL (0-0.2) Prothrombin Time 10.7 SECONDS (9.0-12.0) Prothromb Time International Ratio 1.0 (0.9-1.1) Anion Gap 8.0 mmol/L (3-11) Est Creatinine Clear Calc Drug Dose 59.0 ml/min Estimated GFR () 52.4 Estimated GFR (Non- 45.2 BUN/Creatinine Ratio 19.1 (10-20) Calcium Level 9.2 mg/dl (8.5-10.1) Magnesium Level 1.6 mg/dl (1.8-2.4) Total Bilirubin 0.6 mg/dl (0.2-1) Aspartate Amino Transf (AST/SGOT) 30 U/L (15-37) Alanine Aminotransferase (ALT/SGPT) 42 U/L (12-78) Alkaline Phosphatase 106 U/L (45-117) Troponin I < 0.015 ng/ml (0-0.045) Pro-B-Type Natriuretic Peptide 1816 pg/ml (0-450) Total Protein 7.3 gm/dl (6.4-8.2) Albumin 3.3 gm/dl (3.4-5.0) Globulin 4.0 gm/dl (2.5-4.0) Albumin/Globulin Ratio 0.8 (0.9-2) Thyroid Stimulating Hormone (TSH) 6.560 uIu/ml (0.300-4.500) Laboratory results per my review. Medications Administered Medications (Trade) Dose Ordered Sig/Garcia Route Start Time Stop Time Status Last Admin Dose Admin Adenosine (Adenosine Iv) 6 mg STK-MED ONCE .ROUTE 03/11/18 10:32 03/11/18 10:33 DC 03/11/18 10:51 6 MG Adenosine (Adenosine Iv) 12 mg STK-MED ONCE .ROUTE 03/11/18 10:50 03/11/18 10:51 DC 03/11/18 10:52 12 MG Adenosine (Adenosine Iv) 12 mg STK-MED ONCE .ROUTE 03/11/18 10:57 03/11/18 10:58 DC 03/11/18 11:03 12 MG Sodium Chloride 1,000 ml @ 999 mls/hr Q1H1M STAT IV 03/11/18 11:34 03/11/18 12:34 DC 03/11/18 11:34 999 MLS/HR ECG Per My Interpretation Indication: tachycardia Rate (beats per minute): 173 Rhythm: SVT Findings: no acute ischemic change, other (normal axis, normal QRS, normal QT-c ) Comparison ECG Date: REPEAT Change: REPEAT: Sinus rhythm at 84 bpm. Normal axis. Normal intervals. No ectopy. No acute ischemia. ED Course 1030: The patient was evaluated in room B12B. A complete history and physical exam was performed. 1034: Ordered Adenosine 6 mg IV. 1040: Ordered Adenosine 12 mg IV. 1052: I discussed the patient's case with Dr. Manzo- Cardiology. He recommends giving another round of 12 of Adenosine and then cardioverting if necessary. No contraindications at this time despite patient's extensive and complicated history of DVT and multiple prior ablations. 1101: Ordered Adenosine 12 mg IV. Patient did convert to a normal sinus rhythm following administration of this. 1126: I reevaluated the patient and she is sinus rhythm in the 80s. Her pressures are much better. 1134: Ordered NSS 1000 ml @ 999 mls/hr IV. 1206: I reevaluated the patient and she is feeling better. 1224: I discussed the patient's case with Dr. Manzo- Cardiology. He agrees that the patient's Metoprolol can be increased to 75 BID. 1250: I reevaluated the patient and updated her on her results thus far. 1340: Upon reevaluation, the patient is feeling better. I discussed the findings and the treatment plan with the patient. She verbalizes agreement and understanding. The patient was discharged home. Medical Decision Differential diagnoses includes but is not limited to acute coronary syndrome, myocardial infarction, pericarditis, pulmonary embolus, aortic dissection, pneumonia, pneumothorax, musculoskeletal, shingles, esophageal. Patient with long-standing 1 known history of recurrent episodes of SVT. Patient typically able to be converted with IV adenosine. After the first 2 doses of 6 mg and 12 mg that were refractory, I did discuss case with cardiology due to her extensive history and preparations were made for possible sedation and electrical cardioversion. I was in the room for medication administration and follow-up, did not leave the patient's room for the first 30 minutes. With patient's persistent tachycardia initially she was becoming more and more hypotensive and I did discuss with patient that we may need to move from chemical to electrocardioversion. She and verbalized understanding and were in agreement. One more attempt was 12 mg was performed and patient did convert. Blood pressure then immediately improved. Patient kept on IV fluids. Patient's blood pressure although improved, was slightly low for her, I feel this is most likely because she did take an extra dose of her metoprolol this morning in an attempt to break her SVT herself at home and avoid coming to the ER. Patient's labs otherwise reassuring. I feel the mildly elevated BNP is likely secondary to the stress on her heart from the SVT. Patient with known thyroid dysfunction and takes thyroid medication daily. I do not suspect thyroid storm. Other labs and electrolytes reassuring. Chest x-ray reassuring. Discussed with patient close follow-up again with the group segment consultant she began seeing at the [facility], and if there is any delay in her having follow-up there, to see her local group segment consultant Dr. Tejada. Discussed with her symptoms to watch and return for, use of her medications including suggested change by Dr. Manzo. Patient verbalized understanding of this was agreeable with plan, VSS, well-appearing at time of discharge ambulate with a steady gait, with no further symptoms. Medication Reconcilliation Current Medication List: was personally reviewed by me Blood Pressure Screening Patient's blood pressure: Normal blood pressure Blood pressure disposition: Did not require urgent referral Consults Time Called: 1051 Consulting Physician: Dr. Bowles Cardiology Returned Call: 1052 I discussed the patient's case with Dr. Wilbur Zhang. He recommends giving another round of 12 of Adenosine and then cardioverting if necessary. Additional Consults: Time Called: 1220 Consulted Physician: Dr. Wilbur Zhang Returned Call: 1229 Additional Comments: I discussed the patient's case with Dr. Wilubr Zhang. He agrees that the patient's Metoprolol can be increased to 75 BID. Impression Primary Impression: Supraventricular tachycardia, paroxysmal Critical Care I have personally spent 40 minutes of critical care time in the direct management of this patient. This includes bedside care, interpretation of diagnostic studies, and testing, discussion with consultants, patient, and family members, and other required patient management activities. This 40 minutes is in excess of all separately billable procedures. Scribe Attestation The scribe's documentation has been prepared under my direction and personally reviewed by me in its entirety. I confirm that the note above accurately reflects all work, treatment, procedures, and medical decision making performed by me. Departure Information Dispostion Home / Self-Care Referrals No Doctor, Assigned (PCP) Forms HOME CARE DOCUMENTATION FORM, IMPORTANT VISIT INFORMATION Patient Instructions My [facility] Additional Instructions Please call your group segment consultant at [facility] to arrange close follow-up. Please also follow-up with your local group segment consultant Dr. Tejada. Please continue regular medications as prescribed. You may increase her metoprolol to 75 mg twice a day. Please stay well-hydrated. Please continue your other medications as prescribed. If you have any recurrent palpitations or racing heart, chest discomfort, trouble breathing, dizziness, fevers, vomiting, you have any other new or concerning symptoms, please return to the emergency room.
[2018-03-11 13:41] VITALS: BP 116/72; PULSE 83; O2SAT 99
== END 2018-03-11 13:41 | disposition home or self-care (01) ==
LOC: C.EDB 10:18
DX: I47.1 Supraventricular tachycardia (principal); E11.9 Type 2 diabetes mellitus without complications; I10 Essential (primary) hypertension; E03.9 Hypothyroidism, unspecified; E87.6 Hypokalemia